=== PATIENT | male | born 1960 | race Caucasian/White ===

== ENCOUNTER 2023-05-31 11:00 | Inpatient (IN) ==
[2023-05-31] MEDS ORDERED: IOPAMIDOL 100 ML BOTTLE IV ONE (11:01)
[2023-05-31] MEDS ORDERED: 0.9 % SODIUM CHLORIDE 1,000 ML IV ONE ×2 (11:15→14:02)
[2023-05-31] MEDS ORDERED: POTASSIUM CHLORIDE 10 MEQ TABLET PO ONE (11:15)
[2023-05-31 11:57] LABS: POC Calcium, Ionized 1.02 (1.16-1.32); POC Creatinine 0.6 (0.6-1.2); POC Potassium 2.4 (3.3-5.1)
[2023-05-31 12:12] LABS: Basophils # (Auto) 0.07 K/mcL (0.00-0.30); Basophils % (Auto) 1.1 % (0.0-2.0); Eosinophils # (Auto) 0.08 K/mcL (0.00-0.70); Eosinophils % (Auto) 1.3 % (0.0-7.0); Hematocrit 33.9 % (40.1-51.0); Hemoglobin 11.8 g/dL (13.7-17.5); Lymphocytes # (Auto) 1.57 K/mcL (1.50-4.80); Lymphocytes % (Auto) 25.7 % (15.5-49.0); Mean Cell Volume 96.6 fL (80.0-100.0); Mean Corpuscular HGB Conc 34.8 g/dL (31.0-36.0); Mean Platelet Volume 9.4 fL (8.8-12.5); Monocytes # (Auto) 0.62 K/mcL (0.10-0.90); Monocytes % (Auto) 10.1 % (1.0-12.0); Neutrophils % (Auto) 61.5 % (38.0-78.0); Platelet Count 465 K/mcL (140-440); RBC 3.51 M/mcL (4.63-6.08); Red Cell Distribution Width 18.4 % (11.5-14.5); WBC 6.1 K/mcL (4.5-11.0)
[2023-05-31 12:32] LABS: ALT/SGPT 33 U/L (<40); AST/SGOT 80 U/L (<40); Albumin 2.9 gm/dL (3.2-5.2); Alkaline Phosphatase 157 U/L (39-117); Bilirubin,Direct 0.9 mg/dL (<0.3); Bilirubin,Total 1.8 mg/dL (0.1-1.0); Globulin 2.7 gm/dL (2.2-3.7)
[2023-05-31 14:37] LABS: Alcohol, Blood < 10.0 mg/dL; Alcohol,Blood < 0.010 gm/dL (<0.010)
[2023-05-31] MEDS ORDERED: LACTULOSE 20 GM/30 ML ORAL.SOL PO PRN (19:37)
[2023-05-31] MEDS ORDERED: POTASSIUM CHLORIDE 40 MEQ in DEXTROSE 5% IN WATER 500 ML IV SCH (19:37)
[2023-05-31] MEDS ORDERED: SENNOSIDES 1 TABLET PO PRN (19:37)
[2023-05-31] MEDS ORDERED: IPRATROPIUM/ALBUTEROL 3 ML AMPUL.NEB NEB PRN (19:37)
[2023-05-31] MEDS ORDERED: POTASSIUM CHLORIDE 20 MEQ/10 ML VIAL IV ONE (20:01)
[2023-05-31] MEDS: DOCUSATE SODIUM 100 MG CAPSULE PO SCH (20:09)
[2023-05-31] MEDS ORDERED: traZODone HCL 50 MG TABLET PO PRN (20:09)
[2023-05-31] MEDS: 0.9 % SODIUM CHLORIDE 10 ML SYRINGE IV SCH (20:09)
[2023-06-01] MEDS: 0.9 % SODIUM CHLORIDE 10 ML SYRINGE IV SCH ×3 (05:35→20:28)
[2023-06-01 05:59] LABS: Basophils % (Auto) 1.7 % (0.0-2.0); Eosinophils # (Auto) 0.18 K/mcL (0.00-0.70); Hematocrit 29.2 % (40.1-51.0); Hemoglobin 9.8 g/dL (13.7-17.5); Lymphocytes # (Auto) 1.91 K/mcL (1.50-4.80); Lymphocytes % (Auto) 31.9 % (15.5-49.0); Mean Corpuscular HGB Conc 33.6 g/dL (31.0-36.0); Mean Platelet Volume 9.5 fL (8.8-12.5); Neutrophils % (Auto) 53.2 % (38.0-78.0); Platelet Count 348 K/mcL (140-440); RBC 2.92 M/mcL (4.63-6.08); Red Cell Distribution Width 18.4 % (11.5-14.5)
[2023-06-01 06:09] LABS: ALT/SGPT 29 U/L (<40); AST/SGOT 63 U/L (<40); Albumin 2.2 gm/dL (3.2-5.2); Albumin/Globulin Ratio 0.8 (1.0-2.3); Alkaline Phosphatase 131 U/L (39-117); Bilirubin,Total 1.2 mg/dL (0.1-1.0); Blood Urea Nitrogen 5 mg/dL (8-23); Calcium 7.6 mg/dL (8.6-10.4); Carbon Dioxide 32 mmol/L (22-30); Chloride 99 mmol/L (96-108); Globulin 2.6 gm/dL (2.2-3.7); Glomerular Filtration Rate 127; Glucose 96 mg/dL (70-105)
[2023-06-01] MEDS: DOCUSATE SODIUM 100 MG CAPSULE PO SCH (08:03)
[2023-06-01] MEDS: ONDANSETRON 4 MG/2 ML VIAL IV PRN ×2 (08:11→17:21)
[2023-06-01] MEDS ORDERED: GADOBENATE DIMEGLUMINE 15 ML/VIAL IV ONE (09:04)
[2023-06-01] MEDS: ENOXAPARIN 40 MG/0.4 ML SYRINGE SQ SCH (09:46)
[2023-06-01] MEDS: ACETAMINOPHEN 325 MG TABLET PO PRN (09:46)
[2023-06-01] MEDS ORDERED: POTASSIUM CHLORIDE 20 MEQ PACKET PO SCH (10:30)
[2023-06-01] MEDS: NICOTINE 21 MG PATCH TOPICAL SCH (11:12)
[2023-06-01] MEDS ORDERED: POTASSIUM CHLORIDE 20 MEQ TABLET PO SCH (17:30)
[2023-06-02 06:24] LABS: Basophils # (Auto) 0.08 K/mcL (0.00-0.30); Basophils % (Auto) 1.4 % (0.0-2.0); Eosinophils # (Auto) 0.16 K/mcL (0.00-0.70); Eosinophils % (Auto) 2.8 % (0.0-7.0); Hematocrit 32.1 % (40.1-51.0); Hemoglobin 10.8 g/dL (13.7-17.5); Lymphocytes # (Auto) 1.61 K/mcL (1.50-4.80); Lymphocytes % (Auto) 27.7 % (15.5-49.0); Mean Cell Volume 99.7 fL (80.0-100.0); Mean Corpuscular HGB Conc 33.6 g/dL (31.0-36.0); Mean Platelet Volume 9.6 fL (8.8-12.5); Monocytes # (Auto) 0.41 K/mcL (0.10-0.90); Monocytes % (Auto) 7.1 % (1.0-12.0); Neutrophils % (Auto) 60.7 % (38.0-78.0); Platelet Count 389 K/mcL (140-440); RBC 3.22 M/mcL (4.63-6.08); Red Cell Distribution Width 17.8 % (11.5-14.5); WBC 5.8 K/mcL (4.5-11.0)
[2023-06-02 06:59] LABS: ALT/SGPT 28 U/L (<40); AST/SGOT 65 U/L (<40); Albumin 2.5 gm/dL (3.2-5.2); Alkaline Phosphatase 138 U/L (39-117); Bilirubin,Direct 0.6 mg/dL (<0.3); Bilirubin,Total 1.1 mg/dL (0.1-1.0); Blood Urea Nitrogen 3 mg/dL (8-23); Calcium 8.3 mg/dL (8.6-10.4); Carbon Dioxide 25 mmol/L (22-30); Chloride 103 mmol/L (96-108); Globulin 2.6 gm/dL (2.2-3.7); Glomerular Filtration Rate 127; Glucose 89 mg/dL (70-105); Lactate Dehydrogenase 186 U/L (135-225); Phosphorous 2.2 mg/dL (2.5-4.5); Triglycerides 56 mg/dL (<150); Uric Acid 3.7 mg/dL (2.5-8.0)
[2023-06-02 07:03] LABS: Alpha Fetoprotein NonMaternal 2.6 ng/ml (<8.7)
[2023-06-02] MEDS: NICOTINE 21 MG PATCH TOPICAL SCH (08:12)
[2023-06-02] MEDS: ENOXAPARIN 40 MG/0.4 ML SYRINGE SQ SCH (08:13)
[2023-06-02] MEDS: ACETAMINOPHEN 325 MG TABLET PO PRN (08:13)
[2023-06-02] MEDS: 0.9 % SODIUM CHLORIDE 10 ML SYRINGE IV SCH ×2 (08:13→14:14)
[2023-06-02] MEDS ORDERED: PHOSPHORUS 250 MG TABLET PO SCH (09:00)
[2023-06-02] MEDS ORDERED: NEUTRA PHOS 1 PACKET PO SCH (09:00)
== END 2023-06-02 17:10 | disposition home or self-care (01) | DRG 641 ==
LOC: ED 11:00 → ICU 19:33
PROVIDERS: ADMIT Internal Medicine; ATTEND Internal Medicine